=== PATIENT | male | born 1960 | race Asian ===

== ENCOUNTER → 2017-04-26 | Outpatient (CLI) | payer MEDICARE, OTHER | END | disposition home or self-care (01) | LOC: RADMN 08:35 | PROVIDERS: ATTEND Internal Medicine Nephrology | DX: N26.1 Atrophy of kidney (terminal) (principal); I70.0 Atherosclerosis of aorta; M46.00 Spinal enthesopathy, site unspecified; Z94.0 Kidney transplant status | CPT/HCPCS: 74176 ==